=== PATIENT | female | born 1965 | race African-American/Black ===

== ENCOUNTER 2022-08-28 19:43 | Emergency (ER) | payer BC ==
[2022-08-28] MEDS ORDERED: HYDROcodone/Acetaminophen 5/325 mg Tablet ONE (19:58)
== END 2022-08-28 20:50 | disposition home or self-care (01) ==
LOC: BURERS 19:43
DX: S09.90XA Unspecified injury of head, initial encounter (principal); S00.03XA Contusion of scalp, initial encounter; M54.50 Low back pain, unspecified; M54.2 Cervicalgia; I10 Essential (primary) hypertension; E78.00 Pure hypercholesterolemia, unspecified; W18.00XA Striking against unspecified object with subsequent fall, initial encounter; Z79.899 Other long term (current) drug therapy
CPT/HCPCS: 70450